=== PATIENT | male | born 1995 | race American Indian/Alaskan Native ===

== ENCOUNTER 2021-04-25 15:26 | Emergency (ER) | payer OTHER ==
[2021-04-25 15:47] VITALS: BP 128/89
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
== END 2021-04-25 18:40 | disposition home or self-care (01) ==
LOC: ED 15:26
DX: M54.6 Pain in thoracic spine (principal); M25.522 Pain in left elbow; Z86.69 Personal history of other diseases of the nervous system and sense organs; V87.7XXA Person injured in collision between other specified motor vehicles (traffic), initial encounter; Y93.89 Activity, other specified; Y92.488 Other paved roadways as the place of occurrence of the external cause; Y99.8 Other external cause status
CPT/HCPCS: 72072; 99283